=== PATIENT | male | born 1970 | race Asian ===

== ENCOUNTER 2019-05-22 11:12 | Emergency (ER) | payer OTHER ==
[~2019-05-22] VITALS: Ht 170.2 cm; Wt 83.9 kg
[2019-05-22 11:21] VITALS: TEMP 98.1
[2019-05-22 13:09] LABS: PLATELET COUNT 356 K/uL (142-355)
[2019-05-22 13:17] LABS: POTASSIUM 4.1 mmol/L (3.6-5.2)
[2019-05-22 15:20] VITALS: BP 148/80
== END 2019-05-22 15:35 | disposition home or self-care (01) ==
LOC: ED 11:12
PROVIDERS: Hospitalist
DX: L72.8 Other follicular cysts of the skin and subcutaneous tissue (principal); E11.9 Type 2 diabetes mellitus without complications
CPT/HCPCS: 80048; 81002; 82962; 85027; 87040; 96360; 96365; 96374; 96375; 99284; J1815; J1885; J2405; J3370